=== PATIENT | female | born 1965 | race Caucasian/White ===

== ENCOUNTER 2017-06-15 06:18 | Day surgery (SDC) | payer OTHER ==
[~2017-06-15] VITALS: Ht 152.4 cm; Wt 81.6 kg
[2017-06-15] MEDS ORDERED: LIDOCAINE 2% 100 MG/5 ML UJET TP ONE ×2 (07:25→09:16)
== END 2017-06-15 10:20 | disposition home or self-care (01) ==
LOC: MDS 06:18 → MMU 06:24 → MDS 10:20
PROVIDERS: ATTEND Internal Medicine Gastroenterology
DX: D12.3 Benign neoplasm of transverse colon (principal); K64.8 Other hemorrhoids; E66.9 Obesity, unspecified; Z98.890 Other specified postprocedural states; Z85.3 Personal history of malignant neoplasm of breast; Z79.899 Other long term (current) drug therapy; Z80.0 Family history of malignant neoplasm of digestive organs; Z86.010 Personal history of colon polyps; Z98.51 Tubal ligation status